=== PATIENT | male | born 1970 | race American Indian/Alaskan Native ===

== ENCOUNTER 2017-12-25 11:01 | Emergency (ER) | payer MEDICAID ==
[2017-12-25 11:17] VITALS: BMI 24.3
--- NOTE | 2017-12-25 11:57 | C.PDOC ---
History Of Present Illness 47 year old male, whose PMHx includes Hypertension, presents to the ED for evaluation of left-sided tooth pain that radiates to his left ear and left-sided facial numbness which began 10 days ago. Patient states he participates in a program at [facility] where the students practice dental care. Patient notes he has had some extractions done in the past. In the ED, patient was noted to have left-sided facial palsy and watery injected left eye. Patient also notes that he feels weaker when standing on his left leg than on his right. Patient denies fever, chills, headache, dizziness, chest pain, shortness of breath, nausea, vomiting. Time Seen by Provider: 12/25/17 11:24 Chief Complaint (Nursing): ENT Problem History Per: Patient History/Exam Limitations: no limitations Onset/Duration Of Symptoms: Days (10) Current Symptoms Are (Timing): Still Present Quality: Positive for: "Pain" Additional History Per: Patient Past Medical History Reviewed: Historical Data, Nursing Documentation, Vital Signs Vital Signs: Last Vital Signs Temp 98.3 F 12/25/17 14:53 Pulse 79 12/25/17 14:53 Resp 20 12/25/17 14:53 BP 141/93 H 12/25/17 14:53 Pulse Ox 97 12/25/17 15:13 - Medical History PMH: HTN Surgical History: No Surg Hx Family History: States: Unknown Family Hx - Social History Hx Tobacco Use: No Hx Alcohol Use: No Hx Substance Use: No - Immunization History Hx Tetanus Toxoid Vaccination: No Hx Influenza Vaccination: No Hx Pneumococcal Vaccination: No Review Of Systems Constitutional: Negative for: Fever, Chills ENT: Positive for: Ear Pain (left ), Mouth Pain (left tooth pain ) Respiratory: Negative for: Shortness of Breath Neurological: Positive for: Numbness (left-sided, facial ), Other (left facial palsy ). Negative for: Headache, Dizziness Physical Exam - Physical Exam Appears: Non-toxic, No Acute Distress Skin: Normal Color, Warm, Dry Head: Atraumatic, Normacephalic Eye(s): bilateral: PERRL, EOMI, right: Normal Inspection, left: Other (eyelid droop. eye is watery and injected ) Ear(s): Bilateral: Normal Nose: Normal, No Discharge Oral Mucosa: Moist Teeth: No Caries, Other (some extractions noted. no dental decay ) Throat: Normal, No Erythema, No Exudate Neck: Supple Chest: Symmetrical, No Deformity, No Tenderness Cardiovascular: Rhythm Regular, No Murmur Respiratory: Normal Breath Sounds, No Rales, No Rhonchi, No Wheezing Gastrointestinal/Abdominal: Soft, No Tenderness, No Guarding, No Rebound Extremity: Normal ROM, Capillary Refill (less than 2 seconds ) Neurological/Psych: Oriented x3, Normal Speech, Normal Cognition, Other ( patient has normal sensation with the exception of facial region. no drift ) Gait: Steady Other Neurological Findings: Facial Palsy (left) ED Course And Treatment - Laboratory Results Result Diagrams: 12/25/17 12:27 12/25/17 12:27 ECG: Interpreted By Me, Viewed By Me ECG Rhythm: Sinus Rhythm Interpretation Of ECG: Normal Sinus Rhyth at rate 68bpm. No ST elevations or depressions. O2 Sat by Pulse Oximetry: 97 (on RA ) Pulse Ox Interpretation: Normal - Other Rad CXR X-Ray: Interpreted by Me, Viewed By Me, Read By Radiologist Interpretation: HISTORY: Code Stroke. COMPARISON: Chest radiograph dated 07/2015. FINDINGS: LUNGS: No active pulmonary disease. PLEURA: No significant pleural effusion identified, no pneumothorax apparent. CARDIOVASCULAR: Normal. OSSEOUS STRUCTURES: No significant abnormalities. VISUALIZED UPPER ABDOMEN: Normal. OTHER FINDINGS: None. IMPRESSION: No active disease. - CT Scan/US CT Head Other Rad Studies (CT/US): Interpreted By Me, Read By Radiologist, Radiology Report Reviewed CT/US Interpretation: PROCEDURE: CT HEAD WITHOUT CONTRAST. HISTORY: left side numbness. COMPARISON: None available. TECHNIQUE: Axial computed tomography images were obtained through the head/brain without intravenous contrast. Radiation dose: Total exam DLP = 1009.34 mGy-cm. This CT exam was performed using one or more of the following dose reduction techniques: Automated exposure control, adjustment of the mA and/or kV according to patient size, and/or use of iterative reconstruction technique. FINDINGS: HEMORRHAGE: No intracranial hemorrhage. BRAIN: Normal nowak-white matter differentiation and density are appreciated throughout the cerebrum and cerebellum with the brainstem appearing unremarkable as well. There is no mass effect. There is no suspicious extra-axial fluid collection and the midline brain anatomy appears diffusely unremarkable. VENTRICLES: Unremarkable. No hydrocephalus. CALVARIUM: Unremarkable. PARANASAL SINUSES: Unremarkable as visualized. No significant inflammatory changes. MASTOID AIR CELLS: Unremarkable as visualized. No inflammatory changes. OTHER FINDINGS: None. IMPRESSION: Unremarkable CT head without contrast. Follow-up MRI or CT are available as clinically warranted. NIHSS Stroke Scale - Date/Time Evaluation Performed Date Performed: 12/25/17 Time Performed: 11:56 When Was NIHSS Performed: Baseline - How Severe is the [place]oke Level of Consciousness: 0=Alert LOC to Questions: 0=Both comments correct LOC to commands: 0=Obeys both correctly Best Gaze: 0=Normal Visual: 0=No visual loss Facial: 1=Minor asymmetry Motor Arm - Left: 0=No drift Motor Arm - Right: 0=No drift Motor Leg - Left: 0=No drift Motor Leg - Right: 0=No drift Limb Ataxia: 0=Absent Sensory: 1=Mild to moderate loss Best Language: 0=No aphasia Dysarthia: 0=Normal articulation Extinction & Inattention (Neglect): 0=Normal, no object Score: 2 Severity Of Stroke: 1-4= Minor Stroke Medical Decision Making Medical Decision Making: Impression: 47 year old male with left tooth pain radiating to left ear, left- sided facial numbness Plan: * bloodwork * CXR * EKG * CT Head * Tylenol PO * reassess and disposition Progress: 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 Will do full stroke workup due to patient's history of HTN. Bloodwork, CXR, EKG, CT Head ordered and reviewed. Tylenol PO administered. Stroke workup results are negative. On re-exam, patient is resting comfortably, showing no signs of distress and is stable for discharge. Patient was educated regarding [place] Palsy and advised to follow up with neurologic care within 1-2 days for further evaluation and/or return to the ED if symptoms persist or worsen. Disposition Counseled Patient/Family Regarding: Studies Performed, Diagnosis - Disposition Referrals: Darron Javed MD [Staff Provider] - Kory Terrell MD [Staff Provider] - Disposition: HOME/ ROUTINE Disposition Time: 14:11 Condition: STABLE Prescriptions: Ibuprofen [Motrin] 600 mg PO TID #15 tab traMADol/Acetaminophen [Ultracet 37.5/325 mg] 1 tab PO TID PRN #20 tab PRN Reason: pain Instructions: Granado's Palsy (DC) Forms: General Discharge Instructions, [employer] (Green[place]ic), Work Excuse - POA Present On Arrival: None - Clinical Impression Clinical Impression: Granado's palsy - Scribe Statement The provider has reviewed the documentation as recorded by the Scribe (Samaria Snow) Provider Attestation: All medical record entries made by the Scribe were at my direction and personally dictated by me. I have reviewed the chart and agree that the record accurately reflects my personal performance of the history, physical exam, medical decision making, and the department course for this patient. I have also personally directed, reviewed, and agree with the discharge instructions and disposition.
[2017-12-25 12:37] LABS: BASO % 0.5 % (0.0-2.0); EOS # 0.2 K/uL (0.0-0.7); EOS % 3.6 % (0.0-4.0); HEMOGLOBIN 16.8 g/dL (12.0-18.0); LYMPH # 1.9 K/uL (1.0-4.3); MEAN CELL VOLUME 96.7 fL (80.0-94.0); MEAN CORPUSCULAR HEMOGLOBIN 34.9 pg (27.0-31.0); MEAN CORPUSCULAR HGB CONC 36.1 g/dL (33.0-37.0); MONO # 0.5 K/uL (0.0-0.8); MONO % 10.1 % (0.0-10.0); NEUT # 2.8 K/uL (1.8-7.0); NEUT % 51.8 % (50.0-75.0); NRBC % 0.1 % (0.0-2.0); RBC 4.82 Mil/uL (4.40-5.90); RED CELL DISTRIBUTION WIDTH 12.4 % (11.5-14.5); WHITE BLOOD COUNT 5.5 K/uL (4.8-10.8)
[2017-12-25 12:49] LABS: ALB/GLOB RATIO 1.2 (1.0-2.1); ALBUMIN 4.4 g/dL (3.5-5.0); ALT/SGPT 63 U/L (21-72); AST/SGOT 32 U/L (17-59); BLOOD UREA NITROGEN 15 mg/dL (9-20); CALCIUM 9.6 mg/dl (8.6-10.4); GFR AFRICAN-AMERICAN > 60; GFR NON-AFRICAN AMERICAN 54; HDL CHOLESTEROL 49 mg/dL (30-70)
[2017-12-25 13:01] LABS: LDL CHOLESTEROL 86 mg/dL (0-129)
--- NOTE | 2017-12-25 13:23 | CT ---
PROCEDURE: CT HEAD WITHOUT CONTRAST. HISTORY: left side numbness COMPARISON: None available. TECHNIQUE: Axial computed tomography images were obtained through the head/brain without intravenous contrast. Radiation dose: Total exam DLP = 1009.34 mGy-cm. This CT exam was performed using one or more of the following dose reduction techniques: Automated exposure control, adjustment of the mA and/or kV according to patient size, and/or use of iterative reconstruction technique. FINDINGS: HEMORRHAGE: No intracranial hemorrhage. BRAIN: Normal nowak-white matter differentiation and density are appreciated throughout the cerebrum and cerebellum with the brainstem appearing unremarkable as well. There is no mass effect. There is no suspicious extra-axial fluid collection and the midline brain anatomy appears diffusely unremarkable. VENTRICLES: Unremarkable. No hydrocephalus. CALVARIUM: Unremarkable. PARANASAL SINUSES: Unremarkable as visualized. No significant inflammatory changes. MASTOID AIR CELLS: Unremarkable as visualized. No inflammatory changes. OTHER FINDINGS: None. IMPRESSION: Unremarkable CT head without contrast. Follow-up MRI or CT are available as clinically warranted.
[2017-12-25 14:53] VITALS: BP 141/93; PULSE 79; RESP 20; TEMP 98.3
[2017-12-25 14:57] VITALS: O2SAT 97
--- NOTE | 2017-12-25 15:02 | RAD ---
HISTORY: Code Stroke COMPARISON: Chest radiograph dated 10/16/2014. FINDINGS: LUNGS: No active pulmonary disease. PLEURA: No significant pleural effusion identified, no pneumothorax apparent. CARDIOVASCULAR: Normal. OSSEOUS STRUCTURES: No significant abnormalities. VISUALIZED UPPER ABDOMEN: Normal. OTHER FINDINGS: None. IMPRESSION: No active disease.
--- NOTE | 2017-12-26 18:22 | CARD ---
APPROVED REPORT EKG Measurement Heart [id number] ME [id number] <Conclusion> Normal sinus rhythm Nonspecific T wave abnormality Abnormal ECG
== END 2017-12-25 15:05 | disposition home or self-care (01) ==
LOC: C.ER 11:01
DX: G51.0 Bell's palsy (principal)